=== PATIENT | male | born 1970 ===

== ENCOUNTER 2016-06-18 14:36 | Emergency (ER) | payer SELFPAY ==
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
[2016-06-18] MEDS ORDERED: HYDROCODONE/APAP 5/325MG TABLET PO ONE (16:00)
--- NOTE | 2016-06-23 12:51 | RADIOLOGY REPORT ---
EXAM: RIGHT KNEE HISTORY: PAIN. TECHNIQUE: Four views of the right knee were obtained. Comparison: None. Encounter: Initial. FINDINGS: There is a minimally depressed lateral tibial plateau fracture. No dislocation. Small joint effusion. Extensive prepatellar edema/soft tissue swelling along the anterior aspect of the knee. Mild tricompartmental degenerative change. IMPRESSION: 1. MILDLY DEPRESSED LATERAL TIBIAL PLATEAU FRACTURE. 2. SMALL JOINT EFFUSION. 3. PREPATELLAR EDEMA/SOFT TISSUE SWELLING ANTERIORLY. 4. MILD DEGENERATIVE CHANGE. JOB NUMBER: [id number] MTDD
== END 2016-06-18 16:32 | disposition home or self-care (01) ==
LOC: ER 14:36
DX: S82.141A Displaced bicondylar fracture of right tibia, initial encounter for closed fracture (principal); V19.3XXA Pedal cyclist (driver) (passenger) injured in unspecified nontraffic accident, initial encounter
CPT/HCPCS: 99283